=== PATIENT | female | born 1950 | race Caucasian/White ===

== ENCOUNTER → 2021-02-06 | Outpatient (CLI) | payer MEDICARE | LOC: KOH-I 08:00 | DX: K57.90 Diverticulosis of intestine, part unspecified, without perforation or abscess without bleeding (principal); R31.9 Hematuria, unspecified; K76.0 Fatty (change of) liver, not elsewhere classified; K57.30 Diverticulosis of large intestine without perforation or abscess without bleeding | CPT/HCPCS: 74176 ==

== ENCOUNTER → 2021-10-03 | Outpatient (CLI) | payer MEDICARE ==
[~2021-10-03] VITALS: Ht 162.6 cm; Wt 86.2 kg
== END ==
LOC: OPSV 13:00
DX: M80.08XA Age-related osteoporosis with current pathological fracture, vertebra(e), initial encounter for fracture (principal)
CPT/HCPCS: 96365; J3489

== ENCOUNTER 2022-03-06 23:41 | Emergency (ER) | payer MEDICARE ==
[2022-03-07 00:32] LABS: HEMOGLOBIN 13.1 gm/dl (12.3-15.3); RED BLOOD COUNT 4.33 M/UL (4.00-5.10)
[2022-03-07 00:49] LABS: BUN/CREATININE RATIO 18 (0-10)
== END 2022-03-07 02:04 | disposition home or self-care (01) ==
LOC: ER1 23:41
PROVIDERS: Family Medicine
DX: M79.661 Pain in right lower leg (principal); M79.662 Pain in left lower leg; I10 Essential (primary) hypertension; Z86.718 Personal history of other venous thrombosis and embolism
CPT/HCPCS: 80053; 82550; 82553; 84484; 85025; 85379; 93005; 96374; 96375; 99283; J2270; J2405; J7120

== ENCOUNTER → 2022-03-07 | Outpatient (CLI) | payer MEDICARE | LOC: KOH-I 09:46 | DX: M25.561 Pain in right knee (principal) | CPT/HCPCS: 73562 ==

== ENCOUNTER → 2022-03-26 | Outpatient (CLI) | payer MEDICARE | LOC: KOH-I 10:22 | DX: M25.561 Pain in right knee (principal); S83.281A Other tear of lateral meniscus, current injury, right knee, initial encounter; R93.6 Abnormal findings on diagnostic imaging of limbs; S83.411A Sprain of medial collateral ligament of right knee, initial encounter | CPT/HCPCS: 73721 ==